=== PATIENT | male | born 1995 | race Caucasian/White ===

== ENCOUNTER 2018-06-15 10:55 | Emergency (ER) | payer OTHER ==
--- NOTE | 2018-06-15 12:27 | ED Physician Documentation ---
PD HPI BACK PAIN - Stated complaint Stated Complaint: BACK PAIN - Chief complaint Chief Complaint: Back Pain - History obtained from History obtained from: Patient, Caregiver - History of Present Illness Timing - onset: Yesterday Timing - duration: Days (2) Timing - details: Gradual onset Pain level max: 7 Pain level now: 4 Location: Lower (coccyx) Quality: Pain, Spasm, Similar to prior episodes Associated symptoms: No: Fever, Weakness, Numbness, Incontinent of urine, Unable to urinate, Hematuria, Incontinent of stool Improves with: Rest Worsened by: Movement Contributing factors: No: Lifting, Twisting, Trauma, Anticoagulated, Cancer, IVDA Recently seen: Not recently seen Review of Systems Constitutional: denies: Fever, Chills GI: denies: Nausea, Vomiting, Diarrhea Skin: denies: Rash Musculoskeletal: denies: Neck pain Neurologic: denies: Focal weakness, Numbness PD PAST MEDICAL HISTORY - Past Medical History Past Medical History: No - Past Surgical History Past Surgical History: No - Present Medications Home Medications: Ambulatory Orders Medication Instructions Recorded Confirmed Cephalexin [Keflex] 500 mg PO Q6H #28 capsule 06/15/18 Cyclobenzaprine [Flexeril] 10 mg PO TID PRN #10 tablet 06/15/18 Ibuprofen [Motrin] 800 mg PO Q8H PRN #30 tablet 06/15/18 Sulfamethox/Trimeth 800/160 1 each PO BID #14 tablet 06/15/18 [Bactrim Ds 800/160] - Allergies Allergies/Adverse Reactions: Allergies Allergy/AdvReac Type Severity Reaction Status Date / Time No Known Drug Allergies Allergy Verified 06/15/18 11:02 - Social History Does the pt smoke?: No Does the pt drink ETOH?: No Does the pt have substance abuse?: No - Family History Family history: reports: Non contributory PD ED PE NORMAL - Vitals Vital signs reviewed: Yes - General General: Alert and oriented X 3, No acute distress, Well developed/nourished - HEENT HEENT: PERRL, Moist mucous membranes - Neck Neck: Supple, no meningeal sign - Cardiac Cardiac: RRR, Strong equal pulses - Respiratory Respiratory: No respiratory distress, Clear bilaterally - Abdomen Abdomen: Soft, Non tender, Non distended - Back Back: Other (Tenderness near the tip of the coccyx. Mild swelling. Mild erythema. No drainable abscess) - Derm Derm: Warm and dry, No rash - Neuro Neuro: Alert and oriented X 3 - Psych Psych: Normal mood, Normal affect Results - Vitals Vitals: Vital Signs - 24 hr 06/15/18 11:01 Temperature 36.7 C Heart Rate 110 H Respiratory 18 Rate Blood Pressure 147/99 H O2 Saturation 97 Oxygen O2 Source Room air PD MEDICAL DECISION MAKING - ED course Complexity details: considered differential, d/w patient ED course: Patient with coccygeal pain, this is happened to him before but only lasted for a day or 2 at a time. Possible early pilonidal cyst? Does have mild swelling. Will treat with antibiotics and follow-up closely with his doctor. Patient denies any trauma. No falls. Patient counseled regarding signs and symptoms for which I believe and urgent re-evaluation would be necessary. Patient with good understanding of and agreement to plan and is comfortable going home at this time This document was made in part using voice recognition software. While efforts are made to proofread this document, sound alike and grammatical errors may occur. Departure - Departure Disposition: 01 Home, Self Care Clinical Impression: Pilonidal cyst, Coccyx pain Condition: Good Instructions: ED Cyst Pilonidal Infec Abx Only Follow-Up: [facility] [Provider Group] - Within 3 Days Prescriptions: Cephalexin [Keflex] 500 mg PO Q6H #28 capsule Cyclobenzaprine [Flexeril] 10 mg PO TID PRN #10 tablet PRN Reason: Spasms Ibuprofen [Motrin] 800 mg PO Q8H PRN #30 tablet PRN Reason: PAIN &/OR FEVER Sulfamethox/Trimeth 800/160 [Bactrim Ds 800/160] 1 each PO BID #14 tablet Comments: Take the medications as prescribed. Return if you worsen. This may be due to an early infection. Do not drive or operate heavy machinery while taking the Flexeril. Follow-up with your doctor in 2-3 days for recheck.
[2018-06-15 12:32] VITALS: BP 132/83
== END 2018-06-15 12:38 | disposition home or self-care (01) ==
LOC: ED 10:55
DX: L05.91 Pilonidal cyst without abscess (principal); M53.3 Sacrococcygeal disorders, not elsewhere classified
CPT/HCPCS: 99283

== ENCOUNTER 2021-06-22 08:43 | Outpatient (CLI) | payer OTHER ==
[2021-06-22 09:49] VITALS: BP 132/94
--- NOTE | 2021-06-22 09:49 | SLEEP CARE CONSULTATION ---
Information from patient questionnaire entered by Yaakov Singletary MA. I have reviewed and concur with the information entered by Yaakov Singletary MA. This document represents the service I personally performed and the decisions made by , Hanh Prabhakar ARNP. History of Present Illness Service Date and Time: 06/22/2021 0843 Reason for Visit: New patient (ONSET 03/2015, NO PRIORS, ) Chief Complaint: reports: Unrefreshed sleep, Excessive daytime sleepiness Date of Onset: 6 PLUS YEARS Usual bedtime: 10 PM Time it takes to fall asleep: 5 - 15 MINUTES Snores at night: No Observed to quit breathing while asleep: No Sleeps alone due to snoring: No Number of times waking at night: 1 Reasons for waking at night: reports: Other (unknown reasons, change positions). denies: Choking, Snoring, Gasping for air Toss, Turn, or Twitch while sleeping: Yes (DEPENDS) Recalls having dreams: Yes Usually gets out of bed at: 0640; weekends 10-11 AM Feels refreshed in the morning: No Morning headache: No Sleepy or fatigued during the day: Yes Ever fallen asleep while driving: Yes (drowsy driving, [place]chor on long trips) Takes day naps: Yes (1-3 naps daily, 30 mins to 3 hours) Dreams during day naps: Yes (sometime in longer naps) Prior sleep studies: No Additional HPI information: I had the pleasure of seeing MATTEO FITCH today regarding the possibility of him having a sleep disorder. His current complaints are unrefreshed sleep and daytime sleepiness. He was sent here by his doctor because he is always tired and sleeping all the time. He does not wake up feeling rested. He states no one has ever told him that he snores or has any pauses in breathing. The patient tells me that he normally goes to bed around 10 pm, and it takes him approximately 5-15 minutes to fall asleep. His bed partner can still sleep in the same bed. He can recall waking up on the average of 1 time during the night. Most of the time he wakes up because of changing positions. He has not awakened for his own snoring, choking, and having to gasp for air. There is not a lot of tossing and turning in his sleep. Generally he can recall having dreams. He usually wakes up at 0640 and does not feel refreshed. He usually does not have a morning headache. During the day he complains of feeling sleepy and fatigued. He has never fallen asleep while driving nor has any accident due to sleepiness. He usually takes 1-3 naps that add up to about 30-3 hours minutes during the day. If he naps, upon falling asleep during the day he admits to having vivid dreams. There is no somniloquy (sleep talking) or somnambulism (sleep walking). He has never experienced sleep paralysis, cataplexy, or symptoms of restless leg syndrome. He reports having impaired concentration during the day. 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 Patient is and lives in [place]. Have you smoked in the past 12 months: No Alcohol use: Yes Alcohol amount and frequency: 1 X WEEKLY Caffeine use: Yes Caffeine amount and frequency: 1 X DAILY Family History Family history of sleep disordered breathing: Yes Family Hx Sleep Apnea: Mother: Snoring Allergies and Home Medications Known drug allergies: No Drug allergies reviewed: Yes Home medication list reviewed: Yes Allergy and home medication list: Allergies No Known Drug Allergies Allergy (Verified 06/15/18 11:02) Medications: Wellbutrin Lexapro Review of Systems Psychiatric: reports: depression Endocrine: reports: sluggishness Musculoskeletal: reports: joint pain, joint swelling Physical Exam Vital signs obtained and entered by: KYLIE RAMAN Blood Pressure: 132/94 (LEFT, PULSE 82, RESP 16, ) Heart Rate: 87 O2 Saturation: 97 (PAPER) Height: 6 ft 4 in Weight: 227 lb (PT CLOTHES) Body Mass Index: 27.6 BMI Classification: Overweight Neck circumference: 15 (INCHES) Mouth and throat: narrow oropharynx Soft palate: long Hard palate: arched Uvula: long Uvula visualization: 100% Mallampati Class I Tongue: normal in size Tonsils: 1+ Neck: normal w/o lymphadenopathy or thyromegaly Heart: regular rate and rhythm Lungs: clear bilaterally Impression and Plan 1. Suspected Obstructive Sleep Apnea-Hypopnea Syndrome, as suggested by a history of unrefreshed sleep, cognitive impairment, and excessive daytime sleepiness. Narrow oropharynx and obesity are common predisposing factors for obstructive sleep apnea-hypopnea syndrome. I recommend proceeding to polysomnography to confirm the diagnosis and to assess severity. If the patient has significant sleep disordered breathing, a manual CPAP titration study will also be performed to find the optimal treatment pressure. I informed the patient of what the sleep studies involve and after some discussion, obtained agreement to proceed. The pathophysiology of obstructive sleep apnea-hypopnea syndrome was discussed with the patient and health risks of cardiovascular and cerebrovascular disease if not treated. Risks of drowsy driving discussed in detail and patient advised to avoid long distance driving and to supervisor [employer] at the first sign of drowsiness. Patient agreed to plan. * Schedule polysomnography +- manual CPAP titration study and return in 1-2 weeks after the study to discuss result and initiate therapy. * Avoid long distance driving or driving when feeling sleepy. * Avoid alcohol, sedative and muscle relaxant around bedtime. * Attempt to lose weight. * Review instructions provided by trained office staff on how to prepare for the sleep study. * Return for follow-up after sleep study completed. Counseling Topics: Weight loss health impact Visit Type: In Office Time Spent with Patient (minutes): 30 Provider Statement: I spent 100% of the Face to Face Visit with the patient with greater than 50% spent counseling the patient and coordination of care.
== END 2021-06-22 08:44 | disposition home or self-care (01) ==
LOC: SC 08:43
PROVIDERS: ATTEND Nurse Practitioner Family
DX: G47.8 Other sleep disorders (principal); R41.9 Unspecified symptoms and signs involving cognitive functions and awareness; G47.10 Hypersomnia, unspecified
CPT/HCPCS: 99203; 99212

== ENCOUNTER 2021-08-02 19:37 | Outpatient (CLI) | payer OTHER | END 2021-08-02 19:38 | disposition home or self-care (01) | LOC: SC 19:37 | PROVIDERS: ATTEND Nurse Practitioner Family | DX: G47.8 Other sleep disorders (principal); F32.A Depression, unspecified; G47.10 Hypersomnia, unspecified | CPT/HCPCS: 95810 ==

== ENCOUNTER 2021-09-19 13:23 | Outpatient (CLI) | payer OTHER ==
[2021-09-19 15:48] VITALS: BP 130/76
--- NOTE | 2021-09-19 15:48 | SLEEP CARE CONSULTATION ---
Information from patient questionnaire entered by Carole Cole. I have reviewed and concur with the information entered by Carole Cole. This document represents the service I personally performed and the decisions made by me, Jesusita Youssef MD, [facility]. History of Present Illness Service Date and Time: 09/19/2021 1323 Initial [place] Sleepiness Scale score: 18 (2021) Current [place] Sleepiness Scale score: 20 (09/19/2021) Additional HPI information: Mr. Bender complains of excessive daytime sleepiness. He had an in- laboratory polysomnography in July of this year that was normal. REM onset was delayed. The patient kept a sleep diary for a month. It shows regular sleep- wake pattern of about 8 10 hours of sleep a night. In addition, he takes 30 40 minutes nap during the day. He reports dreaming during naps if they are l onger than half an hour. He denies having sleep paralysis and cataplexy. No family history of daytime sleepiness. He is presently taking Lexapro and Wellbutrin for major depression. There is a plan to reduce the Wellbutrin dose. Sleep Study - Results Type of Sleep Study: Polysomnography (1 MONTH F/U- HYPERSOMNIA, SLEEP DIARY, POLY ON 08/02/21) Prior sleep studies: No Allergies and Home Medications Drug allergies reviewed: Yes Home medication list reviewed: Yes Allergy and home medication list: Allergies No Known Drug Allergies Allergy (Verified 06/15/18 11:02) Review of Systems Review of systems same as previous: Yes Physical Exam Vital signs obtained and entered by: DENISE, [employer] Blood Pressure: 130/76 (LEFT ARM ) Cuff size: regular Heart Rate: 72 O2 Saturation: 97 Height: 6 ft 4 in Weight: 253 lb Body Mass Index: 30.8 BMI Classification: Obese Impression and Plan IMPRESSION: 1. Hypersomnia, with a negative in-laboratory polysomnography 2 months ago. He continues to be sleepy. 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 Excessive daytime sleepiness can be found with depression. Also, sleepiness is a common side effect of Lexapro. I recommend proceeding to the multiple sleep latency test (MSLT) for further evaluation. The test will be most accurate if performed without the antidepressants. The decision to discontinue the medication will be left up to the prescribing physician. PLAN: 1. Order a multiple sleep latency test (MSLT), preferably performed off all antidepressants. The MSLT will have to follow an in-lab polysomnography. 2. Return for a follow up after the study. Follow up with Sleep Care in: 1-2 months Plan: In-lab PSG + MSLT Visit Type: In Office Time Spent with Patient (minutes): 20 Provider Statement: I spent 100% of the Face to Face Visit with the patient with greater than 50% spent counseling the patient and coordination of care.
== END 2021-09-19 13:24 | disposition home or self-care (01) ==
LOC: SC 13:23
PROVIDERS: ATTEND Internal Medicine Pulmonary Disease
DX: G47.10 Hypersomnia, unspecified (principal); E66.9 Obesity, unspecified; Z68.30 Body mass index [BMI] 30.0-30.9, adult
CPT/HCPCS: 99212; 99213

== ENCOUNTER 2022-02-27 14:13 | Outpatient (CLI) | payer OTHER ==
--- NOTE | 2022-02-27 14:43 | SLEEP CARE CONSULTATION ---
Information from patient questionnaire entered by Maritza Brown. I have reviewed and concur with the information entered by Maritza Brown. This document represents the service I personally performed and the decisions made by me, Jesusita Youssef MD, [facility]. History of Present Illness Service Date and Time: 02/27/2022 1413 Reason for follow up: other (5 MONTH F/U PT UNABLE TO COMPLETE MSLT ) Prior sleep studies: No Type of Sleep Study: Polysomnography (1 MONTH F/U- HYPERSOMNIA, SLEEP DIARY, POLY ON 08/02/21) HPI additional information: Mr. Bender complains of excessive daytime sleepiness. He had an in- laboratory polysomnography in July of this year that was normal. REM onset was delayed. The patient kept a sleep diary for a month. It shows regular sleep- wake pattern of about 8 10 hours of sleep a night. In addition, he takes 30 40 minutes nap during the day. He reports dreaming during naps if they are longer than half an hour. He denies having sleep paralysis and cataplexy. No family history of daytime sleepiness. He is presently taking Lexapro and Wellbutrin for major depression. He came back for a PSG + MSLT but test could not be performed because he was still on one antidepressant. His primary care provider started him on Adderall 5 mg which he finds helpful. He takes the medication 2 3 times a week. He does not think that he can ever come off all antidepressants. Sleep Study - Results Type of Sleep Study: Polysomnography (1 MONTH F/U- HYPERSOMNIA, SLEEP DIARY, POLY ON 08/02/21) Prior sleep studies: No Subjective Initial [place] Sleepiness Scale score: 18 (2021) Current [place] Sleepiness Scale score: 19 (02/27/22) Allergies and Home Medications Drug allergies reviewed: Yes Home medication list reviewed: Yes Allergy and home medication list: Allergies No Known Drug Allergies Allergy (Verified 06/15/18 11:02) Review of Systems Review of systems same as previous: Yes Physical Exam Vital signs obtained and entered by: MARITZA Finney MA Blood Pressure: 134/80 (LEFT ARM) Cuff size: regular Heart Rate: 79 O2 Saturation: 98 Height: 6 ft 4 in Weight: 258 lb 9.6 oz Body Mass Index: 31.4 BMI Classification: Obese Impression and Plan IMPRESSION: 1. Hypersomnia, with a negative in-laboratory polysomnography 2 months ago. He continues to be sleepy. He is now on one antidepressant, rather than two. He was started on Adderall. I explained to him the there is nothing we can do at this time. He is leaving the [employer] in less than 3 months and will move back to [facility]. PLAN: 1. Continue to follow up with his primary care provider. 2. Return to the sleep clinic on as needed basis. Follow up with Sleep Care in: as needed Visit Type: In Office Time Spent with Patient (minutes): 15 Provider Statement: I spent 100% of the Face to Face Visit with the patient with greater than 50% spent counseling the patient and coordination of care.
[2022-02-27 14:44] VITALS: BP 134/80
== END 2022-02-27 14:14 | disposition home or self-care (01) ==
LOC: SC 14:13
PROVIDERS: ATTEND Internal Medicine Pulmonary Disease
DX: G47.10 Hypersomnia, unspecified (principal); Z79.899 Other long term (current) drug therapy
CPT/HCPCS: 99212